=== PATIENT | female | born 1965 | race Caucasian/White ===

== ENCOUNTER 2017-05-05 21:38 | Emergency (ER) | payer SELFPAY ==
[~2017-05-05] VITALS: Ht 157.5 cm; Wt 92.3 kg
[~2017-05-05 21:38] MED LIST: ATV/1 PO; BYS/5 PO; CARB25TA14 PO
[2017-05-05 21:45] VITALS: TEMP 36.6; Ht 157.5 cm; Wt 92.3 kg
[2017-05-05] MEDS ORDERED: LORAZEPAM 1 MG TAB PO STA (22:46)
[2017-05-05] MEDS ORDERED: LPR25 PO (23:16)
[2017-05-05] MEDS ORDERED: OXYCODONE/ACETAMINOPHEN 5-325 TAB PO STA (23:28)
[2017-05-05 23:43] VITALS: BP 142/88; PULSE 81; O2SAT 92
[2017-05-06] MEDS ORDERED: KETOROLAC TROMETHAMINE 60 MG/2 ML VIAL IM STA (00:05)
[2017-05-06] MEDS ORDERED: ONDANSETRON HOME PACK 4MG OD TAB PO ONE (00:15)
--- NOTE | 2017-05-06 06:39 | DIAGNOSTIC IMAGING REPORT ---
CT HEAD WITHOUT CONTRAST (CT) CLINICAL HISTORY: Head pain status post trauma COMPARISON STUDY: No previous studies for comparison. TECHNIQUE: Axial CT of the brain is performed from the vertex to the skull base. IV contrast was not administered for this examination. CT DOSE: 1118.00 mGy.cm FINDINGS: No intra or extra-axial mass lesions are visualized. There is no CT evidence of acute cortical infarction. There is no evidence of midline shift. There is no acute hemorrhage. No calvarial fractures are visualized. There are patchy white matter hypodensities likely on a small vessel basis. There is no evidence of pathologic ventricular dilatation. There are polypoid densities within the right maxillary sinus. There is mild ethmoid mucosal thickening. IMPRESSION: No acute intracranial findings Electronically signed by: Brian Larkin M.D. 05/06/2017 6:37 AM Dictated Date/Time: 05/06/2017 6:36 AM
--- NOTE | 2017-05-06 06:54 | DIAGNOSTIC IMAGING REPORT ---
CERVICAL SPINE CT CT DOSE: HISTORY: Fall. Head injury/neck pains. TECHNIQUE: Multiaxial CT images of the cervical spine were performed and reformatted in the sagittal and coronal plane without the use of contrast. COMPARISON: None. FINDINGS: No fractures. No subluxation. Prevertebral soft tissues and the C1-C2 interval are intact. No pneumothorax. IMPRESSION: No fractures within the cervical spine. Electronically signed by: Huber Cortez M.D. 05/06/2017 6:53 AM Dictated Date/Time: 05/06/2017 6:52 AM
--- NOTE | 2017-05-06 23:28 | EMERGENCY ROOM VISIT NOTE ---
History First contact with patient: 22:37 Chief Complaint: HEAD INJURY (MINOR) Stated Complaint: FALL, HIT HEAD ON 04/29, CONFUSION,NAUSEA,VISION History of Present Illness The patient is a 51 year old female who presents to the Emergency Room with complaints of fall and head injury 6 days ago. The patient states that she suffered a mechanical fall when she struck the right side of her head on a piece of concrete. The patient did not lose consciousness. She states that ever since the injury she has a persistent headache with nausea and difficulty focusing her vision. She did not notice blood or bleeding after the event. She is not on blood thinners. The patient has felt slightly confused, and states that she did not contact her PCP as she does not have insurance. The patient has not been taking anything [id number] for her symptoms and rates her current discomfort a 7/10. Review of Systems More than 10 systems were reviewed and otherwise negative with the exception of history of present illness. Past Medical/Surgical History Medical Problems: (1) History of DVT of lower extremity (2) HTN (hypertension) (3) Tobacco abuse Family History No significant family history Social History Smoking Status: Current Every Day Smoker Drug Use: none Marital Status: Housing Status: lives with family Occupation Status: employed Current/Historical Medications Scheduled Carbidopa/Levodopa (Sinemet 25MG/250MG), 1 TAB PO TID Metoprolol Tartrate (Lopressor), 25 MG PO TID Scheduled PRN Lorazepam (Ativan), 1 MG PO Q6H PRN for Anxiety/Agitation Allergies Coded Allergies: Iodine (Verified Allergy, Unknown, ANAPHYLAXIS, 05/05/17) Papaya Derivatives (Verified Allergy, Unknown, ANAPHYLAXIS, 05/05/17) Pineapple (Verified Allergy, Unknown, anaphylaxis, 05/05/17) Shellfish (Verified Allergy, Unknown, anaphylaxis, 05/05/17) Physical Exam Vital Signs Date Time Temp Pulse Resp B/P (MAP) Pulse Ox O2 Delivery O2 Flow Rate FiO2 05/05/17 23:43 81 18 142/88 92 Room Air 05/05/17 21:45 36.6 88 18 153/93 93 Room Air Pain Rating (0-10): 4.0 Physical Exam VITALS: Vitals are noted on the nurse's note and reviewed by myself. Vital signs stable. GENERAL: Well-developed, well-nourished, white female, who is in no acute distress and resting comfortably. Patient is cooperative with the examination. GCS 15. HEAD: Normocephalic atraumatic. EARS: External ear normal. External auditory canals clear, tympanic membranes pearly falcon without erythema or effusion bilaterally. EYES: Pupils equal round and reactive to light and accommodation. Conjunctivae without injection, sclerae without icterus. Extraocular movements intact. NOSE: Patent, turbinates without inflammation or discharge. MOUTH: Mucous membranes moist. Tonsils are not enlarged. Pharynx without erythema, blood, or exudate. Uvula midline. Airway patent. NECK: Supple without nuchal rigidity. No lymphadenopathy. No thyromegaly. Cervical spine is nontender. HEART: Regular rate and rhythm without murmurs gallops or rubs. LUNGS: Clear to auscultation bilaterally without wheezes, rales or rhonchi. No retractions or accessory muscle use. MUSCULOSKELETAL: No muscle atrophy, erythema, or edema noted. Full range of motion without joint tenderness in all extremities. NEURO: Patient was alert and oriented to person place and time. CN II through XII grossly intact. Medical Decision & Procedures ER Provider Diagnostic Interpretation: CERVICAL SPINE CT CT DOSE: HISTORY: Fall. Head injury/neck pains. TECHNIQUE: Multiaxial CT images of the cervical spine were performed and reformatted in the sagittal and coronal plane without the use of contrast. COMPARISON: None. FINDINGS: No fractures. No subluxation. Prevertebral soft tissues and the C1-C2 interval are intact. No pneumothorax. IMPRESSION: No fractures within the cervical spine. CT HEAD WITHOUT CONTRAST (CT) CLINICAL HISTORY: Head pain status post trauma COMPARISON STUDY: No previous studies for comparison. TECHNIQUE: Axial CT of the brain is performed from the vertex to the skull base. IV contrast was not administered for this examination. CT DOSE: 1118.00 mGy.cm FINDINGS: No intra or extra-axial mass lesions are visualized. There is no CT evidence of acute cortical infarction. There is no evidence of midline shift. There is no acute hemorrhage. No calvarial fractures are visualized. There are patchy white matter hypodensities likely on a small vessel basis. There is no evidence of pathologic ventricular dilatation. There are polypoid densities within the right maxillary sinus. There is mild ethmoid mucosal thickening. IMPRESSION: No acute intracranial findings Medications Administered Medications (Trade) Dose Ordered Sig/Howard Route Start Time Stop Time Status Last Admin Dose Admin Lorazepam (Ativan Tab) 1 mg NOW STAT PO 05/05/17 22:46 05/05/17 22:47 DC 05/05/17 22:50 1 MG Oxycodone/ Acetaminophen (Percocet 5-325mg Tab) 1 tab NOW STAT PO 05/05/17 23:28 05/05/17 23:29 DC 05/05/17 23:41 1 TAB Ketorolac Tromethamine (Toradol Inj) 60 mg NOW STAT IM 05/06/17 00:05 05/06/17 00:07 DC 05/06/17 00:29 60 MG Ondansetron HCl (ZOFRAN ODT 4MG Home Pack) 1 homepack UD ONCE PO 05/06/17 00:15 05/06/17 00:16 DC 05/06/17 00:33 1 HOMEPACK ED Course Physical exam and history were performed. Nursing notes and EMR were reviewed. Patient appears to have suffered a head injury 6 days ago. Clinically she is describing postconcussive symptoms. She does not have significant findings on examination. She was agreeable to CT scan, and some anxiety regarding her symptoms. She was provided Ativan and Percocet here in the department. CT scans of the head and neck were performed and are without acute findings. The patient continued with some pain and was given 60 mg IM Toradol. Overall she did have improvement of her symptoms while under care here in the emergency department. The patient is to follow with her primary care physician is I suspect that she does have a concussion and is experiencing postconcussive symptoms. I will give her Zofran for symptomatic care. She is to use over-the- counter analgesics. She is otherwise invited back to the ER with any new, worsening, or concerning symptoms. The chart was completed utilizing [employer] Speech Voice Recognition Software. Grammatical errors, random word insertions, pronoun errors, and incomplete sentences are an occasional consequence of this system due to software limitations, ambient noise, and hardware issues. Any formal questions or concerns about the content, text, or information contained within the body of this dictation should be directly addressed to the provider for clarification. . Medical Decision Differential diagnosis: Etiologies such as concussion, contusion, fracture, subdural hematoma, epidural hematoma, intraparenchymal hemorrhage, as well as other traumatic pathologies were entertained. Impression Primary Impression: Closed head injury Additional Impression: Concussion Departure Information Dispostion Home / Self-Care Condition GOOD Referrals Angel Gaxiola M.D. ([email or web address]) (PCP) Forms HOME CARE DOCUMENTATION FORM, IMPORTANT VISIT INFORMATION Patient Instructions My [facility] Additional Instructions You were seen and evaluated today on an emergency basis only. This is not a substitute for, or an effort to provide, complete comprehensive medical care. It is not possible to recognize and treat all injuries or illnesses in a single emergency department visit. For this reason it is recommended that you followup with your primary care physician this week for ongoing care and evaluation. For baseline pain relief you may alternate ibuprofen and acetaminophen every 4 hours for pain control. Take 600 mg ibuprofen (Advil) and then 4 hours later take 1000 mg acetaminophen (Tylenol). Do not take more than 3000 mg acetaminophen in a single day. Zofran (homepack) 1 tablet every 6 hrs as needed for nausea. You are welcome to return to the emergency department anytime with new, worsening, or concerning symptoms. Problem Qualifiers
== END 2017-05-06 00:35 | disposition home or self-care (01) ==
LOC: C.EDB 21:41 → C.EDC 05-06 00:35
DX: S09.90XA Unspecified injury of head, initial encounter (principal); S06.0X0A Concussion without loss of consciousness, initial encounter; W19.XXXA Unspecified fall, initial encounter; I10 Essential (primary) hypertension; F17.200 Nicotine dependence, unspecified, uncomplicated

== ENCOUNTER 2017-08-23 12:05 | Emergency (ER) | payer SELFPAY ==
[~2017-08-23] VITALS: Ht 157.5 cm; Wt 93.3 kg
[~2017-08-23 12:05] MED LIST changes: -BYS/5 PO; +LPR25 PO
[2017-08-23 12:24] VITALS: TEMP 36.5; Ht 157.5 cm; Wt 93.3 kg
--- NOTE | 2017-08-23 14:11 | DIAGNOSTIC IMAGING REPORT ---
CT OF THE CERVICAL SPINE WITHOUT CONTRAST CLINICAL HISTORY: Fall. COMPARISON STUDY: Cervical spine CT May 05, 2017. TECHNIQUE: Helical axial images of the cervical spine were obtained without IV contrast. Sagittal and coronal reconstructions were viewed. A dose lowering technique was utilized adhering to the principles of ALARA. FINDINGS: Exam is mildly compromised by artifact. Craniocervical junction is intact. There is reversal of the normal cervical lordosis. No acute cervical spine fracture is present. There is no prevertebral edema. There is mild multilevel degenerative disc disease and moderate multilevel facet arthrosis. IMPRESSION: No acute cervical spine fracture or subluxation. Electronically signed by: Dylan Montoya M.D. 08/23/2017 2:10 PM Dictated Date/Time: 08/23/2017 2:06 PM
--- NOTE | 2017-08-23 14:20 | DIAGNOSTIC IMAGING REPORT ---
CT SCAN OF THE FACIAL BONES WITHOUT IV CONTRAST CLINICAL HISTORY: Fall. Facial injury. COMPARISON STUDY: CT of the brain dated 08/23/2017. TECHNIQUE: High-resolution CT scan of the facial bones is performed. Images are reviewed in the axial, sagittal, and coronal planes. IV contrast was not administered for this examination. A dose lowering technique was utilized adhering to the principles of ALARA. CT DOSE: 495.61 mGycm FINDINGS: The skeletal structures are well mineralized. There is a comminuted right orbital floor fracture with depressed fragments and herniation of orbital fat. There is no evidence of extraocular muscle entrapment. There is minimal stranding identified within the inferior right orbital space suggesting trace orbital hematoma. There is also gas within the right orbit. The left bony orbit is intact. The left orbital contents are within normal limits. The zygomatic arches, nasal bones, and pterygoid plates are preserved. The maxilla and mandible are intact. Blood fills the right maxillary antrum. Trace mucosal thickening is present within the frontal and ethmoid sinuses. The mastoid air cells are clear. The visualized calvarium and upper cervical spine are maintained. Partially imaged brain parenchyma is within normal limits. There is right periorbital and premalar soft tissue contusion with associated subcutaneous gas. Simultaneous gas tracks inferiorly into the right upper neck. IMPRESSION: 1. There is a comminuted right orbital floor fracture with depressed fragments and herniation of orbital fat. There is no evidence of extraocular muscle entrapment. 2. Blood fills the right maxillary antrum. There is associated right-sided facial soft tissue injury and subcutaneous gas. 3. No additional fracture is identified. 4. Minimal stranding within the inferior right orbital fat likely represents trace orbital hematoma. Electronically signed by: Tan Mcbride M.D. 08/23/2017 2:19 PM Dictated Date/Time: 08/23/2017 2:11 PM
[2017-08-23] MEDS ORDERED: MoRPHine SULFATE 2 MG/ML CARP IV STA (14:24)
[2017-08-23] MEDS ORDERED: ONDANSETRON INJ 2 MG/ML 2 ML VIAL IV STA (14:24)
--- NOTE | 2017-08-23 14:24 | DIAGNOSTIC IMAGING REPORT ---
CT OF THE HEAD WITHOUT CONTRAST CLINICAL HISTORY: Fall. COMPARISON STUDY: Head CT May 05, 2017. CT DOSE: 788.63 mGycm TECHNIQUE: Helical axial images of the head were obtained without IV contrast. Automated exposure control was utilized for the study. A dose lowering technique was utilized adhering to the principles of ALARA. FINDINGS: No acute intracranial hemorrhage, midline shift or mass effect is present. Brain volume is normal. Ventricular system is normal. Farris-white differentiation is maintained. There is no calvarial fracture. Hemorrhage within the right maxillary sinus is noted. There is extensive right preseptal gas as well as a small amount of right orbital gas. The right globe is intact. A right orbital floor fracture is better depicted on the maxillofacial CT. IMPRESSION: 1. No acute intracranial findings. 2. No calvarial fracture. 3. Right orbital floor fracture with right preseptal gas and minimal right orbital gas. Findings better depicted on the maxillofacial CT. Please see that report for further discussion. Electronically signed by: Dylan Montoya M.D. 08/23/2017 2:23 PM Dictated Date/Time: 08/23/2017 2:16 PM
[2017-08-23] MEDS ORDERED: AMOX875T3 PO (15:09)
[2017-08-23] MEDS ORDERED: HYDR-5688 PO (15:09)
[2017-08-23 15:17] VITALS: BP 165/108; PULSE 71; O2SAT 94
--- NOTE | 2017-08-23 21:10 | EMERGENCY ROOM VISIT NOTE ---
ED Visit Note First contact with patient: 12:35 Chief Complaint: I fell last night and injured my face. History of Present Illness: Ms. Leger is a 51-year-old white female who ambulates into the ED accompanied by her complaining of concussion symptoms and facial pain following a fall. Patient reports approximately 18 hours ago she tripped while walking a dog. When she fell she reports she struck her face and the right side of her frontal area on a piece of concrete. She does not remember if there was a loss of consciousness. When she was able to collect her thoughts she reports she did have bleeding from her nose. She reports when she woke from sleep this morning she noted swelling around the right eye, the right frontal area and abrasion over the nasal bones. She also reports she felt like she needed a blow her nose and when she started blowing she had a funny feeling around her eye so she stopped. Currently patient is complaining of a headache, facial pain and neck pain. She describes both of these as a throbbing sensation that becomes sharp with palpation. The headache is located in the area of her fall over the right frontal area and her facial pain is located over the right right face and cheek area. She rates her discomfort 8/10. Her pain is nonradiating. Her pain worsens with palpation. She is not identified any alleviating factors related to the pain. She reports taking 600 mg of ibuprofen approximately 6 hours ago for her pain. Associated with her symptoms she reports she is nauseated but has not vomited. She denies dizziness, lightheadedness, visual changes, hearing changes, difficulty speaking, difficulty swallowing, difficulty ambulating/coordinating body movements, neck pain, chest pain, shortness of breath, abdominal pain, nausea, vomiting, extremity weakness/numbness/tingling. Review of Systems: As noted above in history of present illness. All body systems were reviewed and found to be negative as noted above. Past Medical History: Hypertension, lower extremity DVT. Current Medications: Lopressor. Allergies to Medications: Iodine. Social History: Patient is currently employed; she feels safe in her home environment; she admits to tobacco and alcohol use. Physical Examination: Vital Signs: Date Time Temp Pulse Resp B/P (MAP) Pulse Ox O2 Delivery O2 Flow Rate FiO2 08/23/17 15:17 71 16 165/108 94 08/23/17 14:03 66 18 156/97 94 Room Air 08/23/17 12:24 36.5 70 18 162/97 96 Room Air GENERAL: 51-year-old female in moderate distress due to pain, nontoxic-appearing , afebrile and hemodynamically stable. NEUROLOGICAL: Awake, alert and oriented to person, place and time. Answering questions appropriately and following commands. Normal gait. Good hand eye coordination. Romberg test negative. Pronator drift test negative. Cranial nerves II through XII grossly intact. Good short-term and long-term recall. Able to spell backwards. Normal rapid alternate movements of the hands and fingers. Normal heel ferreira test. SKIN: Warm, dry and pink. Face: Bruising over the right frontal area and ecchymosis over the upper eyelid. There is also a superficial abrasion over the nasal bones. There is no active bleeding. HEENT: Atraumatic and normocephalic. Skull: No bony deformity or depressions. Moderate tenderness over the right frontal area with bruising. Raccoon's eyes on the right. No mckeon signs. No drainage from the ears of the nostril; no hemotympanum. Face: Moderate tenderness over the bony orbit and right zygomatic arch area. I did not appreciate any bony deformity or crepitus. PERRLA. EOMI without nystagmus. There is a small subconjunctival hemorrhage in the 3 o'clock position of the right sclera. Visual Acuity: 20/25 bilaterally without correction. Nasal passages are clear. I do not appreciate any nasal deformity or tenderness. No malocclusion. No intraoral trauma. Airway is patent. Speech is normal and clear. Trachea midline. No jugular venous distention. BACK: No tenderness over the minimal tenderness over the bony prominences of C4 without bony deformity, bony crepitus, swelling or step-offs. There is also mild tenderness in the right cervical paraspinous musculature in the area of C4. Range of motion of the cervical spine. No tenderness throughout the thoracic or lumbar bony spine. No CVA tenderness. THORAX: Lungs sounds are clear to auscultation and equal bilaterally with symmetrical chest wall. No crepitus, tenderness, subcutaneous air or deformities noted. UPPER EXTREMITIES: No tenderness over the shoulders, upper arms, elbows, forearms or wrist. Full range of motion of these joints against resistance. Throughout the X extremities the skin was warm and pink and capillary refill is brisk. Distal pulses and sensation is intact. ED Course: Patient is assessed as noted above. Patient's medication list was reviewed. An IV lock was initiated and patient received 2 mg of morphine IV for pain and 4 mg of Zofran. Cervical Spine CT: Was reviewed by myself and read by the radiologist and showing no acute cervical spine fractures or subluxations. Radiologist does note that there is mild multilevel degenerative disc disease and facet arthrosis. Head CT: Was reviewed by myself and read by the radiologist and showing no acute intracranial abnormalities or skull fractures. Facial CT: Was reviewed by myself and read by the radiologist showing a comminuted right orbital wall fracture with depressed fragments and herniation of orbital fat without evidence of extraocular muscle entrapment. Also reported was blood filling the right maxillary atrium and associated right facial soft tissue injury and subcutaneous gas. No other fractures were identified. Minimal stranding within the inferior right orbit fat likely resembling trace orbital hematoma. Patient's case was reviewed with Dr. Montgomery; we agreed on diagnostic approach, treatment, disposition and plan. Patient's case was consulted with Dr. Wilks, lumber grader; he recommended antibiotic coverage and office follow-up. Patient was educated about today's findings and instructed on her treatment plan ; she verbalizes understanding and agreement with this plan. Clinical Impression: Right orbital wall fracture. Right facial/head contusion. Right subconjunctival hemorrhage. Status post fall. Disposition: Patient discharged home in stable condition accompanied by her ; prior to departure she was reassessed and subjectively reported she was feeling better and rated her overall discomfort 4/10. Plan: Comfort measures were discussed with the patient including rest, ice and a sliding pain medication scale of ibuprofen, acetaminophen and [place]; she was given appropriate narcotic precautions and her name was checked in the state database and no red flags were noted. Patient was prescribed Augmentin 875 mg 3 times a day for 10 days. Patient was encouraged not to blow her nose. Patient was encouraged to follow-up with Dr. Wilks for specialty care and treatment. Patient was encouraged return ED for worsening headaches, visual changes, hearing changes, difficulty speaking, difficulty swallowing, personality changes , difficulty walking/coordinating body movements, vomiting or any new/ concerning symptoms.
== END 2017-08-23 15:18 | disposition home or self-care (01) ==
LOC: C.EDB 12:07 → C.EDD 15:18
DX: S02.81XA Fracture of other specified skull and facial bones, right side, initial encounter for closed fracture (principal); S00.83XA Contusion of other part of head, initial encounter; W01.198A Fall on same level from slipping, tripping and stumbling with subsequent striking against other object, initial encounter; Y93.K1 Activity, walking an animal; H11.31 Conjunctival hemorrhage, right eye; S00.31XA Abrasion of nose, initial encounter; I10 Essential (primary) hypertension; Z86.718 Personal history of other venous thrombosis and embolism